=== PATIENT | male | born 1950 | race Caucasian/White ===

== ENCOUNTER 2017-06-27 16:24 | Emergency (ER) | payer MEDICARE, OTHER ==
[~2017-06-27] VITALS: Ht 182.9 cm; Wt 97.1 kg
[~2017-06-27 16:24] MED LIST: AMLO1CAP31 PO; CPR250T PO; HYDR-91 PO; HYOS0.1217 PO; NF-LOVAZAC PO; PHEN200T27 PO; UNKNOWN HTN MED
[2017-06-27] MEDS ORDERED: SIMV20TA3 (17:42)
[2017-06-27] MEDS ORDERED: TRIA1TAB3 (17:42)
[2017-06-27] MEDS ORDERED: LISI-552 (17:42)
[2017-06-27] MEDS ORDERED: AMLO5TAB2 (17:43)
--- NOTE | 2017-06-27 18:28 | ED General ---
General Chief Complaint: Cough/Cold/Flu Symptoms Stated Complaint: SOB/COUGH Nursing Triage Note: PT CO OF COLD COUGH AND FLU SX SINCE TUE LAST STATES HAS BEEN SICK SINCE TUESDAY LAST WEEK Nursing Sepsis Screen: No Definite Risk Source of Information: Patient Exam Limitations: No Limitations History of Present Illness Date Seen by Provider: Jun 27, 2017 Time Seen by Provider: 18:26 Initial Comments This 67-year-old gentleman presents to the emergency room with illness for about 5 days including cough and congestion. He has been afebrile. He was at Dr. Eldridge's office today and was referred to the emergency room because of borderline blood pressures. His blood pressure there was 90/60. Patient denies vomiting or diarrhea. He does feel short of breath. Allergies and Home Medications Allergies Coded Allergies: No Known Drug Allergies (Unverified , 02/22/11) Home Medications Amlodipine Besylate 5 Mg Tablet, (Reported) Lisinopril 20 Mg Tablet, (Reported) Simvastatin 20 Mg Tablet, (Reported) Triamterene/Hydrochlorothiazid 1 Each Tablet, (Reported) Constitutional: no symptoms reported EENTM: see HPI Respiratory: see HPI Cardiovascular: no symptoms reported Gastrointestinal: no symptoms reported Genitourinary: no symptoms reported Musculoskeletal: no symptoms reported Skin: no symptoms reported Psychiatric/Neurological: No Symptoms Reported Hematologic/Lymphatic: No Symptoms Reported Past Eqrjqzm-Ekpvnu-Zcqheh Hx Patient Social History Alcohol Use: Occasionally Uses Recreational Drug Use: No Smoking Status: Never a Smoker Recent Foreign Travel: No Contact w/Someone Who Travel: No Recent Infectious Disease Expo: No Recent Hopitalizations: No Immunizations Up To Date Date of Influenza Vaccine: Mar 16, 2017 Surgeries History of Surgeries: Yes (HERNIAS) Surgeries: Abdominal, Appendectomy, Renal (stone retrieval and lithotripsy), Tonsillectomy Respiratory History of Respiratory Disorde: No Cardiovascular History of Cardiac Disorders: Yes (takes cholesterol and BP med, unsure of nap) Cardiac Disorders: Hypertension Neurological History of Neurological Disord: Yes Reproductive System Hx Reproductive Disorders: No Genitourinary History of Genitourinary Disor: Yes Genitourinary Disorders: Kidney Stones Gastrointestinal History of Gastrointestinal Di: No Musculoskeletal History of Musculoskeletal Dis: Yes Endocrine History of Endocrine Disorders: No HEENT History of HEENT Disorders: No Cancer History of Cancer: No Psychosocial History of Psychiatric Problem: Yes Blood Transfusions History of Blood Disorders: No Physical Exam Vital Signs Vital Signs - First Documented 06/27/17 06/27/17 17:34 18:38 Temp 98.7 Pulse 102 Resp 18 B/P (MAP) 100/71 (81) Pulse Ox 95 O2 Delivery Room Air FiO2 94 Capillary Refill : Less Than 3 Seconds General Appearance: No Apparent Distress, WD/WN HEENT: PERRL/EOMI, Normal ENT Inspection, Pharynx Normal Neck: Normal Inspection Respiratory: No Accessory Muscle Use, No Respiratory Distress, Wheezing (subtle ) Cardiovascular: No Edema, No Murmur, Tachycardia Gastrointestinal: Normal Bowel Sounds, Non Tender, Soft Extremity: Normal Inspection, No Pedal Edema Neurologic/Psychiatric: Alert, Oriented x3, No Motor/Sensory Deficits, Normal Mood/Affect, procedure writer II-XII Norm as Tested Skin: Normal Color, Warm/Dry Progress/Results/Core Measures Suspected Sepsis Recent Fever Within 48 Hours: Yes Infection Criteria Present: None New/Unexplained Altered Menta: No Sepsis Screen: No Definite Risk Sepsis Diagnosis: SIRS Temperature:98.7 Pulse: 102 Respiratory Rate: 18 Laboratory Tests 06/27/17 18:41: White Blood Count 9.0 Blood Pressure 100 /71 Mean: 81 Laboratory Tests 06/27/17 18:41: Creatinine 1.26, Platelet Count 308 Results/Orders Lab Results Laboratory Tests Test 06/27/17 18:41 Range/Units White Blood Count 9.0 4.3-11.0 10^3/uL Red Blood Count 5.18 4.35-5.85 10^6/uL Hemoglobin 17.5 13.3-17.7 G/DL Hematocrit 48 40-54 % Mean Corpuscular Volume 93 80-99 FL Mean Corpuscular Hemoglobin 34 25-34 PG Mean Corpuscular Hemoglobin Concent 36 32-36 G/DL Red Cell Distribution Width 12.8 10.0-14.5 % Platelet Count 308 130-400 10^3/uL Mean Platelet Volume 9.9 7.4-10.4 FL Neutrophils (%) (Auto) 53 42-75 % Lymphocytes (%) (Auto) 27 12-44 % Monocytes (%) (Auto) 14 H 0-12 % Eosinophils (%) (Auto) 5 0-10 % Basophils (%) (Auto) 1 0-10 % Neutrophils # (Auto) 4.8 1.8-7.8 X 10^3 Lymphocytes # (Auto) 2.4 1.0-4.0 X 10^3 Monocytes # (Auto) 1.2 H 0.0-1.0 X 10^3 Eosinophils # (Auto) 0.5 H 0.0-0.3 10^3/uL Basophils # (Auto) 0.1 0.0-0.1 10^3/uL Sodium Level 137 135-145 MMOL/L Potassium Level 4.3 3.6-5.0 MMOL/L Chloride Level 102 98-107 MMOL/L Carbon Dioxide Level 19 L 21-32 MMOL/L Anion Gap 16 H 5-14 MMOL/L Blood Urea Nitrogen 16 7-18 MG/DL Creatinine 1.26 0.60-1.30 MG/DL Estimat Glomerular Filtration Rate 57 BUN/Creatinine Ratio 13 Glucose Level 108 H 70-105 MG/DL Calcium Level 9.9 8.5-10.1 MG/DL My Orders Orders - DANISH HERBERT MD Basic Metabolic Panel (06/27/17 18:35) Cbc With Automated Diff (06/27/17 18:35) Chest Pa/Lat (2 View) (06/27/17 18:35) Saline Lock/Iv-Start (06/27/17 18:35) Ns Iv 1000 Ml (Sodium Chloride 0.9%) (06/27/17 18:35) Albuterol/Ipra Inhalation Soln (Duoneb I (06/27/17 18:45) Svn Sm Volume Nebulizer Rt-Rfs (06/27/17 18:35) Albuterol/Ipra Inhalation Soln (Duoneb I (06/27/17 18:34) Rx-Albuterol Inhaler (Rx-Proair) (06/27/17 20:37) Medications Given in ED Vital Signs/I&O Intake and Output 06/28/17 00:00 Intake Total 1000 ml Balance 1000 ml Capillary Refill : Less Than 3 Seconds Blood Pressure Mean: 81 Progress Note : Progress Note Patient was noted to be mildly tachycardic and had low normotensive blood pressures. A liter of IV normal saline was administered. He was given a DuoNeb treatment for his wheezing. He did feel notable improvement with these measures. Workup was unremarkable and he was dismissed home. A take-home inhaler was dispensed. Instructions for use were reviewed. It should be noted patient is on multiple antihypertensive medications including diuretics. He may be overmedicated in the context of acute illness. Diagnostic Imaging Diagonstic Imaging: Xray Plain Films/CT/US/NM/MRI: chest Comments Chest x-ray viewed by me and report reviewed. See report below: NAME: AUGUSTINE RAJAN [facility] REC#: [id number] PT STATUS: REG ER : 1950 PHYSICIAN: DANISH HERBERT MD ADMIT DATE: 06/27/17/ER Signed Date of Exam:06/27/17 CHEST PA/LAT (2 VIEW) INDICATION: Cough, congestion x5 days. TECHNIQUE: Two view chest 7:53 PM CORRELATION STUDY: 04/29/2008 FINDINGS: Unchanged elevation of the right diaphragm with right basilar lung volume loss. Lungs overall are clear. Heart size, mediastinum and vasculature within normal limits. Visualized osseous structures are unremarkable. IMPRESSION: 1. Unchanged elevation of the right diaphragm with right basilar volume loss. Negative for acute abnormality. Dictated by: Dictated on workstation # [id number] Dict: 06/27/171934 Trans: 06/27/171938 BRENDAN [id number] Interpreted by: ANJALI PRATT DO Electronically signed by: ANJALI PRATT DO 06/27/171938 Departure Impression Impression: Primary Impression: Flu-like symptoms Additional Impressions: Wheezing Dyspnea Qualified Codes: R06.00 - Dyspnea, unspecified Disposition: 01 HOME, SELF-CARE Condition: Improved Departure-Patient Inst. Decision time for Depature: 20:35 Referrals: PRASHANT ELDRIDGE DO (PCP/Family) Primary Care Physician Patient Instructions: Flu, Adult (DC), Wheezing Add. Discharge Instructions: You may use your inhaler up to 4 puffs a four-hour period of time. Drink plenty of clear liquids. You may take Tylenol (acetaminophen) and/or ibuprofen for fever or body aches. Return to care if symptoms worsen. All discharge instructions reviewed with patient and/or family. Voiced understanding. Copy Copies To 1: PRASHANT ELDRIDGE JOSHUA T MD Jun 27, 2017 18:28
[2017-06-27] MEDS ORDERED: RT-ALBUTEROL/IPRATROPIUM 3 ML (DUONEB) VIAL ONE (18:34)
[2017-06-27] MEDS ORDERED: NS IV 1000 ML 1,000 ML IV ONE (18:35)
[2017-06-27] MEDS ORDERED: RT-ALBUTEROL/IPRATROPIUM 3 ML (DUONEB) VIAL INH ONE (18:45)
[2017-06-27 18:57] LABS: BASOPHILS # (AUTO) 0.1 10^3/uL (0.0-0.1); BASOPHILS % (AUTO) 1 % (0-10); EOSINOPHILS # (AUTO) 0.5 10^3/uL (0.0-0.3); EOSINOPHILS % (AUTO) 5 % (0-10); HEMATOCRIT 48 % (40-54); HEMOGLOBIN 17.5 G/DL (13.3-17.7); LYMPHOCYTES # (AUTO) 2.4 X 10^3 (1.0-4.0); LYMPHOCYTES % (AUTO) 27 % (12-44); MEAN CORPUSCULAR HEMOGLOBIN 34 PG (25-34); MEAN CORPUSCULAR HGB CONC 36 G/DL (32-36); MEAN CORPUSCULAR VOLUME 93 FL (80-99); MEAN PLATELET VOLUME 9.9 FL (7.4-10.4); MONOCYTES # (AUTO) 1.2 X 10^3 (0.0-1.0); MONOCYTES % (AUTO) 14 % (0-12); NEUTROPHILS # (AUTO) 4.8 X 10^3 (1.8-7.8); NEUTROPHILS % (AUTO) 53 % (42-75); PLATELET COUNT 308 10^3/uL (130-400); RED BLOOD COUNT 5.18 10^6/uL (4.35-5.85); RED CELL DISTRIBUTION WIDTH 12.8 % (10.0-14.5)
[2017-06-27 19:07] LABS: CALCIUM 9.9 MG/DL (8.5-10.1); CREATININE SERUM 1.26 MG/DL (0.60-1.30); POTASSIUM 4.3 MMOL/L (3.6-5.0)
--- NOTE | 2017-06-27 19:39 | Diagnostic Imaging Report ---
INDICATION: Cough, congestion x5 days. TECHNIQUE: Two view chest 7:53 PM CORRELATION STUDY: 04/29/2008 FINDINGS: Unchanged elevation of the right diaphragm with right basilar lung volume loss. Lungs overall are clear. Heart size, mediastinum and vasculature within normal limits. Visualized osseous structures are unremarkable. IMPRESSION: 1. Unchanged elevation of the right diaphragm with right basilar volume loss. Negative for acute abnormality. Dictated by: Dictated on workstation # [id number]
[2017-06-27] MEDS ORDERED: RX-ALBUTEROL INHALER (PROAIR) 8 GM IH STA (20:37)
[2017-06-27 20:51] VITALS: BP 125/86
== END 2017-06-27 20:51 | disposition home or self-care (01) ==
LOC: EDUNIT# 16:24 → ER 16:25
DX: J11.1 Influenza due to unidentified influenza virus with other respiratory manifestations (principal); R06.2 Wheezing; I10 Essential (primary) hypertension; Z90.49 Acquired absence of other specified parts of digestive tract; Z90.89 Acquired absence of other organs; Z87.442 Personal history of urinary calculi
CPT/HCPCS: 36415; 71046; 80048; 85025; 94640; 96360; 96361

== ENCOUNTER → 2019-05-18 | Outpatient (CLI) | payer MEDICARE, OTHER ==
[~2019-05-18] MED LIST changes: +AMLO5TAB9; +LISI-552; +SIMV20TA26; +TRIA1TAB3
--- NOTE | 2019-05-18 12:31 | Diagnostic Imaging Report ---
INDICATION: Pain and decreased range of motion of the right shoulder. TIME OF EXAM: 11:53 a.m. TECHNIQUE: Three views of the right shoulder were obtained. FINDINGS: Glenohumeral and acromioclavicular alignment are normal. There is some narrowing of the acromiohumeral space, suspicious for rotator cuff arthropathy. No fracture or dislocation is seen. IMPRESSION: Findings suspicious for rotator cuff arthropathy. No acute bony abnormality is detected. Dictated by: Dictated on workstation # [id number]
== END | disposition home or self-care (01) ==
LOC: RAD 11:03
PROVIDERS: ATTEND Family Medicine
DX: M25.511 Pain in right shoulder (principal); R29.898 Other symptoms and signs involving the musculoskeletal system
CPT/HCPCS: 73030

== ENCOUNTER → 2019-07-09 | Outpatient (CLI) | payer MEDICARE, OTHER ==
--- NOTE | 2019-07-09 10:09 | Diagnostic Imaging Report ---
EXAMINATION: Magnetic resonance imaging of the right shoulder without contrast. DATE: July 09, 2019 COMPARISON: Right shoulder radiographs May 18, 2019. HISTORY: 69-year-old male, injury to the right shoulder in February 2019 with persistent right shoulder pain. TECHNIQUE: Magnetic Resonance Imaging sequences were performed of the shoulder without contrast. FINDINGS: ROTATOR CUFF, LIGAMENTS, TENDONS, AND MUSCLES: There are full-thickness full width tears of both the supraspinatus and infraspinatus tendons with tendon retraction near the level of the glenoid measuring 4.2 cm. There is gltd-[id number] fatty atrophy of the supraspinatus muscle and very mild fatty atrophy of the infraspinatus. There is subscapularis tendinopathy with a probable small interstitial split tear of the subscapularis tendon. The teres minor tendon is intact. LONG HEAD OF BICEPS: The biceps labral attachment and long head of the biceps tendon is intact. The long head of the biceps tendon is normally positioned within the bicipital groove. GLENOHUMERAL JOINT: The humeral head is well positioned relative to the glenoid. There is no definite discrete labral tear. There is no identified paralabral cyst. There is no definite discretely articular cartilage defect. There is a trace glenohumeral joint effusion. ACROMIOCLAVICULAR JOINT: The acromioclavicular joint is normally aligned. The coracoclavicular and coracoacromial ligaments are intact. There are no degenerative changes of the acromioclavicular joint. BONE: There is a benign osseous protuberance from the inferior aspect of the clavicle in the region of the coracoclavicular ligament attachments. There is no acute fracture, bone contusion, or evidence of osteonecrosis. BURSAE AND SOFT TISSUES: There is fluid in the subacromial subdeltoid bursa consistent with the full-thickness rotator cuff tendon tears, bursitis, and/or recent injection. IMPRESSION: 1. Full thickness full width tears of both the supraspinatus and infraspinatus tendons with tendon retraction is level of the glenoid. There is rnjy-il-pjzvbojr fatty atrophy of the supraspinatus muscle and very mild fatty atrophy of infraspinatus. Subscapularis tendinopathy with probable small interstitial split tear of the subscapularis tendon. 2. The long head of biceps tendon is intact and normally positioned within the bicipital groove. 3. Intact acromioclavicular joint. 4. No definite discrete labral tear or cartilage defect of the glenohumeral joint. Trace glenohumeral joint effusion. 5. No acute fracture, bone contusion, or evidence of osteonecrosis. 6. Fluid in the subacromial subdeltoid bursa consistent with the full-thickness rotator cuff tendon tears, bursitis, and/or recent injection. Dictated by: Dictated on workstation # [id number]
== END ==
LOC: RAD 07:35
PROVIDERS: ATTEND Family Medicine
DX: S46.911A Strain of unspecified muscle, fascia and tendon at shoulder and upper arm level, right arm, initial encounter (principal); M62.511 Muscle wasting and atrophy, not elsewhere classified, right shoulder; M75.51 Bursitis of right shoulder
CPT/HCPCS: 73221